=== PATIENT | male | born 2000 | race African-American/Black ===

== ENCOUNTER 2022-01-08 14:46 | Emergency (ER) | payer OTHER ==
--- NOTE | 2022-01-08 16:01 | RAD REPORT ---
EXAM DESCRIPTION: RAD - Shoulder Left 2 View - 01/08/2022 3:46 pm CLINICAL HISTORY: PAIN COMPARISON: No comparisons FINDINGS: No fracture or dislocation is seen.
--- NOTE | 2022-01-08 16:11 | ER ---
Nurse's Notes [facility] Name: Kristyn Brown Age: 21 yrs Sex: Male : 2000 Arrival Date: 01/08/2022 Time: 14:51 Bed DIS2 Private MD: Diagnosis: Contusion of shoulder Presentation: 01/08 15:19 Chief complaint: Patient states: I was working on a car today at 1430 - car fell off of ld[address] and smashed my left shoulder. C/O left shoulder pain. Coronavirus screen: At this time, the client does not indicate any symptoms associated with coronavirus-19. Ebola Screen: No symptoms or risks identified at this time. Initial Sepsis Screen: Does the patient meet any 2 criteria? No. Patient's initial sepsis screen is negative. Does the patient have a suspected source of infection? No. Patient's initial sepsis screen is negative. Risk Assessment: Do you want to hurt yourself or someone else? Patient reports no desire to harm self or others. Onset of symptoms was January 08, 2022. 15:19 Method Of Arrival: Ambulatory ld1 15:19 Acuity: NANCY 3 ld1 Triage Assessment: 15:21 General: Appears in no apparent distress. comfortable, Behavior is calm, cooperative, ld1 appropriate for age. Pain: Complains of pain in anterior aspect of left shoulder and left axilla. EENT: No signs and/or symptoms were reported regarding the EENT system. Neuro: Level of Consciousness is Oriented to person, place, time, situation. Cardiovascular: Capillary refill < 3 seconds Patient's skin is warm and dry. Respiratory: Airway is patent Respiratory effort is even, unlabored. GI: Abdomen is flat, non-distended. : No signs and/or symptoms were reported regarding the genitourinary system. Derm: No signs and/or symptoms reported regarding the dermatologic system. Musculoskeletal: No signs and/or symptoms reported regarding the musculoskeletal system. Injury Description:. Historical: - Allergies: 15:21 No Known Allergies; ld1 - Home Meds: 15:21 None [Active]; ld1 - PSHx: 15:21 None; ld1 - Immunization history:: Adult Immunizations up to date, Client reports receiving the 2nd dose of the Covid vaccine. - Social history:: Smoking status: Patient denies any tobacco usage or history of. Patient/guardian denies using alcohol. Vital Signs: 15:19 BP 137 / 92; Pulse 59; Resp 18; Temp 98.3(TE); Pulse Ox 100% on R/A; Weight 58.06 kg; ld1 Height 5 ft. 10 in. (177.80 cm); Pain 9/10; 15:19 Body Mass Index 18.37 (58.06 kg, 177.80 cm) ld1 ED Course: 14:51 Patient arrived in ED. mr 14:55 Enriqeu Jain is PHCP. jl9 14:55 David Royal MD is Attending Physician. jl9 15:21 Triage completed. ld1 15:21 Arm band placed on right wrist. ld1 15:48 XRAY Shoulder LEFT 2 view In Process Unspecified. EDMS 16:14 Clara Morrissey, RN is Primary Nurse. iw Administered Medications: 16:23 Drug: HYDROcodone-acetaminophen 5 mg-325 mg 1 tabs Route: PO; iw Outcome: 16:11 Discharge ordered by . jl9 16:27 Patient left the ED. iw Signatures: Dispatcher [employer] EDMO Stefanie Torres Clara Morrissey, RN RN iw Qi Paige RN RN ld1 Enrique Jain jl9
--- NOTE | 2022-01-08 16:11 | EDPHYS ---
Physician Documentation [facility] Name: Kristyn Brown Age: 21 yrs Sex: Male : 2000 Arrival Date: 01/08/2022 Time: 14:51 Bed DIS2 Private MD: ED Physician David Royal HPI: 01/08 16:05 This 21 yrs old Black Male presents to ER via Ambulatory with complaints of left jl9 shoulder pain s/p having part of a vehicle hit his left shoulder. . 16:05 The patient or guardian complains of an abrasion, pain. left shoulder and left jl9 clavicle. Context: The problem was sustained at home, resulted from a direct blow. Onset: The symptoms/episode began/occurred just prior to arrival. Modifying factors: the symptoms are alleviated by nothing. The symptoms are aggravated by movement. Associated signs and symptoms: The patient has no apparent associated signs or symptoms. Severity of symptoms: in the emergency department the symptoms a " 2" out of "10". Historical: - Allergies: 15:21 No Known Allergies; ld1 - Home Meds: 15:21 None [Active]; ld1 - PSHx: 15:21 None; ld1 - Immunization history:: Adult Immunizations up to date, Client reports receiving the 2nd dose of the Covid vaccine. - Social history:: Smoking status: Patient denies any tobacco usage or history of. Patient/guardian denies using alcohol. ROS: 16:06 Constitutional: Negative for fever, chills, and weight loss, Eyes: Negative for injury, jl9 pain, redness, and discharge, ENT: Negative for injury, pain, and discharge, Neck: Negative for injury, pain, and swelling, Cardiovascular: Negative for chest pain, palpitations, and edema, Respiratory: Negative for shortness of breath, cough, wheezing, and pleuritic chest pain, Abdomen/GI: Negative for abdominal pain, nausea, vomiting, diarrhea, and constipation, Back: Negative for injury and pain, : Negative for injury, bleeding, discharge, and swelling. 16:06 Skin: Negative for injury, rash, and discoloration, Neuro: Negative for headache, weakness, numbness, tingling, and seizure, Psych: Negative for depression, anxiety, suicide ideation, homicidal ideation, and hallucinations, Allergy/Immunology: Negative for hives, rash, and allergies, Endocrine: Negative for neck swelling, polydipsia, polyuria, polyphagia, and marked weight changes, Hematologic/Lymphatic: Negative for swollen nodes, abnormal bleeding, and unusual bruising. 16:06 MS/extremity: Positive for abrasion, pain, Left shoulder pain. . Exam: 16:07 Constitutional: This is a well developed, well nourished patient who is awake, alert, jl9 and in no acute distress. Head/Face: Normocephalic, atraumatic. Eyes: Pupils equal round and reactive to light, extra-ocular motions intact. Lids and lashes normal. Conjunctiva and sclera are non-icteric and not injected. Cornea within normal limits. Periorbital areas with no swelling, redness, or edema. ENT: Mucous membranes moist. Neck: Trachea midline, no thyromegaly or masses palpated, and no cervical lymphadenopathy. Supple, full range of motion without nuchal rigidity, or vertebral point tenderness. No Meningismus. 16:07 Cardiovascular: Regular rate and rhythm with a normal S1 and S2. No gallops, murmurs, or rubs. Normal PMI, no JVD. No pulse deficits. Respiratory: Lungs have equal breath sounds bilaterally, clear to auscultation and percussion. No rales, rhonchi or wheezes noted. No increased work of breathing, no retractions or nasal flaring. Abdomen/GI: Soft, non-tender, with normal bowel sounds. No distension or tympany. No guarding or rebound. No evidence of tenderness throughout. Back: No spinal tenderness. No costovertebral tenderness. Full range of motion. Skin: Warm, dry with normal turgor. Normal color with no rashes, no lesions, and no evidence of cellulitis. MS/ Extremity: Pulses equal, no cyanosis. Neurovascular intact. Full, normal range of motion. Neuro: Awake and alert, GCS 15, oriented to person, place, time, and situation. Cranial nerves II-XII grossly intact. Motor strength 5/5 in all extremities. Sensory grossly intact. Cerebellar exam normal. Normal gait. Psych: Awake, alert, with orientation to person, place and time. Behavior, mood, and affect are within normal limits. 16:07 Chest/axilla: Inspection: abrasion, that is mild, of the left clavicle Palpation: is normal, Axilla: are normal. Vital Signs: 15:19 BP 137 / 92; Pulse 59; Resp 18; Temp 98.3(TE); Pulse Ox 100% on R/A; Weight 58.06 kg; ld1 Height 5 ft. 10 in. (177.80 cm); Pain 9/10; 15:19 Body Mass Index 18.37 (58.06 kg, 177.80 cm) ld1 MDM: 14:55 Patient medically screened. jl9 16:07 Data reviewed: vital signs, nurses notes. Counseling: I had a detailed discussion with jl9 the patient and/or guardian regarding: the historical points, exam findings, and any diagnostic results supporting the discharge/admit diagnosis, radiology results, the need for outpatient follow up, to return to the emergency department if symptoms worsen or persist or if there are any questions or concerns that arise at home. 01/08 15:24 Order name: XRAY Shoulder LEFT 2 view; Complete Time: 16:05 jl9 01/08 16:16 Order name: Wound Care; Complete Time: 16:23 jl9 Administered Medications: 16:23 Drug: HYDROcodone-acetaminophen 5 mg-325 mg 1 tabs Route: PO; iw Disposition: 16:09 Co-signature as Attending Physician, David Royal MD. rn Disposition Summary: 01/08/22 16:11 Discharge Ordered Location: Home jl9 Condition: Stable jl9 Diagnosis - Contusion of shoulder jl9 Followup: jl9 - With: Private Physician - When: 1 - 2 days - Reason: Recheck today's complaints, Continuance of care, Re-evaluation by your physician Discharge Instructions: - Discharge Summary Sheet jl9 - Shoulder Pain, [id number] jl9 - Contusion, [id number] jl9 - Abrasion, [id number] jl9 Forms: - Medication Reconciliation Form jl9 - Work release form iw - Thank You Letter jl9 - Antibiotic Education jl9 - Prescription Opioid Use jl9 Signatures: Dispatcher [employer] Clara Cardoza, David Méndez RN, MD MD rn Dibbern, Lauren, RN RN ld1 Linares, John jl9
[2022-01-08] MEDS ORDERED: HYDROCODONE/APAP 5/325 MG TAB ONE (16:25)
[2022-01-10 05:01] VITALS: BP 137/92; TEMP 98.3; O2SAT 100
== END 2022-01-08 16:27 | disposition home or self-care (01) ==
LOC: ER 14:46
DX: S40.012A Contusion of left shoulder, initial encounter (principal)
CPT/HCPCS: 99283